=== PATIENT | female | born 2000 | race Caucasian/White ===

== ENCOUNTER → 2021-10-15 | Outpatient (CLI) | payer BC ==
--- NOTE | 2021-10-15 13:14 | EEG ---
DATE OF SERVICE: 10/15/2021 ELECTROENCEPHALOGRAM REPORT EEG NUMBER: [id number], performed on 10/15/[address] Larisa Luna. OBJECTIVE: The patient is a 20-year-old female with 2 episodes of syncope with epigastric discomfort before each event. DESCRIPTION: This is a digital study. Electrodes are placed according to the international 10-20 system. Bipolar and referential montages are available. Activation procedures typically include hyperventilation and intermittent photic stimulation. INTERPRETATION: The waking background consists of 9-10 Hz, 50-100 microvolt activity, symmetrically distributed over parietooccipital regions and reactive to eye opening. Hyperventilation and intermittent photic stimulation are noncontributory. Stage 1 sleep is achieved with normal electroencephalogram patterns. All computer identified abnormalities are reviewed, and none are abnormal. IMPRESSION: This electroencephalogram with the patient awake and asleep is within normal limits. There is no focal, paroxysmal, or epileptiform activity. Thank you for letting us help with the patient's care. SHERLYN DR: Jaja TID: [id number]
== END ==
LOC: RT 09:22
PROVIDERS: ATTEND Pediatrics
DX: R55 Syncope and collapse (principal)
CPT/HCPCS: 95816

== ENCOUNTER 2021-12-29 04:53 | Emergency (ER) | payer BC ==
[~2021-12-29] VITALS: Ht 162.6 cm; Wt 90.0 kg
--- NOTE | 2021-12-29 05:28 | EKG ---
[facility] [address] [place] [address] Test Date: 2021-12-29 Test Time: 05:21:27 Pat Name: NATHALIE ARREDONDO Department: Room: Gender: F Hospital Admitting Clerk: : 2000 Requested By: DANILO ELIZABETH Order Number: [id number] Reading MD: Measurements Intervals [place] Rate: 69 P: 0 VT: 164 QRS: 149 QRSD: 80 T: 148 QT: 372 QTc: 400 Interpretive Statements SINUS RHYTHM ABNORMAL RIGHT AXIS DEVIATION T ABNORMALITY IN HIGH LATERAL LEADS ABNORMAL ECG RI6.02 No previous ECG available for comparison
[2021-12-29 05:33] LABS: BASO # 0.1 x10^3/uL (0.0-0.2); BASO % 1 % (0-3); EOS # 0.4 x10^3/uL (0.0-0.7); EOS % 3 % (0-3); HEMATOCRIT 37.8 % (36.0-47.0); HEMOGLOBIN 12.4 g/dL (12.0-15.5); LYMPH % 36 % (24-48); MEAN CORPUSCULAR HEMOGLOBIN 29 pg (25-35); MEAN CORPUSCULAR HGB CONC 33 g/dL (31-37); MEAN CORPUSCULAR VOLUME 87 fL (79-100); MONO # 0.7 x10^3/uL (0.0-1.1); MONO % 5 % (0-9); NEUT # 7.9 x10^3/uL (1.8-7.7); NEUT % 56 % (31-73); PLATELET COUNT 389 x10^3/uL (140-400); RED BLOOD COUNT 4.35 x10^6/uL (3.50-5.40); WHITE BLOOD COUNT 14.2 x10^3/uL (4.0-11.0)
--- NOTE | 2021-12-29 05:33 | RAD ---
XR CHEST 1V 12/29/2021 5:27 AM INDICATION: Syncope COMPARISON: None available TECHNIQUE: Portable frontal view of the chest is provided. FINDINGS: The cardiomediastinal silhouette is within normal limits. Lungs are clear. There are no significant pleural effusions. There is no pulmonary vascular congestion. No pneumothora x. No suspicious osseous abnormality. IMPRESSION: There is no acute cardiopulmonary process. Electronically signed by: Ana Kirkpatrick MD (12/29/2021 5:31 AM) ZAHIDA
[2021-12-29 05:38] LABS: CREATININE 0.9 mg/dL (0.6-1.0); GFR 79.8; POTASSIUM 4.3 mmol/L (3.5-5.1)
--- NOTE | 2021-12-29 05:40 | PHYS DOC ---
Past Medical History Past Surgical History: No Surgical History General Adult EDM: Chief Complaint: SYNCOPE HPI: HPI: 21-year-old female past medical history of anxiety recently started on citalopram, presents the ED with concern for seizure-like activity prior to arrival. Patient states she woke up around 4 AM with an aura, associated nausea, stomachache, vision loss and passed out. States she feels confused afterwards but shortly returned to baseline. Reports her father caught her and she did not hit her head. Report no associated urinary incontinence, fever, URI, recent fluid losses or dehydration, tongue biting or head injury. Dates she has been having seizures on a monthly basis since the summer and has been seen by Dr. Angeles in October with an unremarkable EEG (I reviewed the EMR for this information). Is on any antiepileptics. Last menstrual period was beg inning of November. Has been vaccinated for COVID but had Covid in November. States she came to the emergency department because these events are scary and she wanted another opinion. Is any alcohol, cocaine, methamphetamine or drug use. Prior history of . No past surgical history. Follows with primary care physician Dr. Magdalena Gil. Review of Systems: Review of Systems: Constitutional: Denies fever or chills. [] Eyes: Denies change in visual acuity. [] HENT: Denies nasal congestion or sore throat. [] Respiratory: Denies cough or hemoptysis Cardiovascular: Denies chest pain or edema. [] GI: Denies abdominal bloody stools or diarrhea. [] : Denies dysuria or vaginal bleeding Musculoskeletal: Denies back pain or joint pain. [] Integument: Denies rash or diaphoresis Neurologic: Denies headache, neck pain, focal weakness or sensory changes. [] Endocrine: Denies polyuria or polydipsia. [] Lymphatic: Denies swollen glands. [] Psychiatric: Denies depression or anxiety. [] Heart Score: C/O Chest Pain: No Risk Factors: Risk Factors: DM, Current or recent (<one month) smoker, HTN, HLP, family history of CAD, obesity. Risk Scores: Score 0 - 3: 2.5% MACE over next 6 weeks - Discharge Home Score 4 - 6: 20.3% MACE over next 6 weeks - Admit for Clinical Observation Score 7 - 10: 72.7% MACE over next 6 weeks - Early Invasive Strategies Allergies: Allergies: Allergies Coded Allergies Type Severity Reaction Last Updated Verified Penicillins Allergy Intermediate hives 12/29/21 Yes Physical Exam: PE: Constitutional: Well developed, well nourished, no acute distress, non-toxic appearance. HENT: Normocephalic, atraumatic, no signs of head trauma Eyes: EOMI, conjunctiva normal, no discharge. Neck: Normal range of motion, supple, no midline neck tenderness Cardiovascular: S1/2 present, regular rhythm Lungs & Thorax: Speaking in full sentences, bilateral equal chest rise, no tachypnea or increased work of breathing Abdomen: soft, no tenderness, Skin: Warm, dry, no erythema, no rash. [] Back: No tenderness, no CVA tenderness. [] Extremities: No tenderness, no cyanosis, no lower extremity edema Neurologic: Alert and oriented X 3, normal motor function, normal sensory function, no focal deficits noted. [] Psychologic: Affect normal, judgement normal, mood normal. [] Current Patient Data: Labs: Laboratory Tests Test 12/29/21 05:20 12/29/21 05:27 White Blood Count 14.2 x10^3/uL (4.0-11.0) H Red Blood Count 4.35 x10^6/uL (3.50-5.40) Hemoglobin 12.4 g/dL (12.0-15.5) Hematocrit 37.8 % (36.0-47.0) Mean Corpuscular Volume 87 fL (79-100) Mean Corpuscular Hemoglobin 29 pg (25-35) Mean Corpuscular Hemoglobin Concent 33 g/dL (31-37) Red Cell Distribution Width 14.0 % (11.5-14.5) Platelet Count 389 x10^3/uL (140-400) Neutrophils (%) (Auto) 56 % (31-73) Lymphocytes (%) (Auto) 36 % (24-48) Monocytes (%) (Auto) 5 % (0-9) Eosinophils (%) (Auto) 3 % (0-3) Basophils (%) (Auto) 1 % (0-3) Neutrophils # (Auto) 7.9 x10^3/uL (1.8-7.7) H Lymphocytes # (Auto) 5.0 x10^3/uL (1.0-4.8) H Monocytes # (Auto) 0.7 x10^3/uL (0.0-1.1) Eosinophils # (Auto) 0.4 x10^3/uL (0.0-0.7) Basophils # (Auto) 0.1 x10^3/uL (0.0-0.2) POC Urine HCG, Qualitative Hcg negative (Negative) Laboratory Tests 12/29/21 05:20 Vital Signs: Vital Signs Date Time Temp Pulse Resp B/P (MAP) Pulse Ox O2 Delivery O2 Flow Rate FiO2 12/29/21 05:04 98.5 83 18 133/69 (90) 97 Room Air 98.5 EKG: EK sinus rhythm 69 bpm, extreme rad, TWI 1, aVL and V2, no pao/std, concern for Lemli discordance of P wave down in lead I 70 bpm, no axis deviation, normal intervals, T wave inversion V2, no ST elevation or ST depression Radiology/Procedures: Radiology/Procedures: IMAGING REPORT Signed PATIENT: NATHALIE ARREDONDO ACCOUNT: [id number] : 2000 LOCATION: ER AGE: 21 SEX: F EXAM STATUS: PRE ER ORD. PHYSICIAN: DANILO ELIZABETH DO REASON: syncope PROCEDURE: PORTABLE CHEST 1V XR CHEST 1V 12/29/2021 5:27 AM INDICATION: Syncope COMPARISON: None available TECHNIQUE: Portable frontal view of the chest is provided. FINDINGS: The cardiomediastinal silhouette is within normal limits. Lungs are clear. There are no significant pleural effusions. There is no pulmonary vascular congestion. No pneumothorax. No suspicious osseous abnormality. IMPRESSION: There is no acute cardiopulmonary process. Electronically signed by: Virgilio Aguilar MD (12/29/2021 5:31 AM) [facility] DICTATED and SIGNED BY: VRIGILIO AGUILAR MD DATE: 12/29/21 [id number] Course & Med Decision Making: Course & Med Decision Making Pertinent Labs and Imaging studies reviewed. (See chart for details) Concern for seizure-like activity. Pt with no head trauma, incontinence or tongue biting. Patient is also taking famciclovir for herpes outbreak. Most common adverse effect with this medication is nausea, vomiting or diarrhea. Orthostatics negative. No family history of splenic tissue disease, aortic aneurysm, aortic dissection. No associated chest pain or shortness of breath. D-dimer within normal limits. Patient is hemodynamically stable. Cannot PERC out due to control use. D-dimer is within normal limits. X-ray unremarkable. 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 Will refer to neurology for a second opinion. Patient reports she is eating and tolerating oral intake. No associated dehydration. Will discharge home with strict ED return precautions were given for persistent seizures with inability to return to baseline, neurologic deficits, chest pain, shortness of breath or traumatic injury-father educated on this. Encouraged urgent outpatient follow-up with PMD for routine care and neurology evaluation. Life-threatening processes were considered but are low suspicion at this time, given history, physical exam and ED workup. Pt was educated on all prescription medications and adverse effects. All patient's questions were answered and pt was stable at time of discharge. Life/limb-threatening differential includes but is not limited to, end organ damage/sepsis, trauma/abuse/neglect, neurologic deficit, alcohol/drug ingestion, toxidrome, suicidal/homicidal ideations plans or attempts, psychosis or mental illness resulting in self neglect and inability to care for self. I have spoken with the patient and/or caregivers. I explained the patient's condition, diagnoses and treatment plan based on the information available to me at this time. I have answered the patient and/or caregiver's questions and addressed any concerns. The patient and/or caregivers have a good understanding of patient's diagnosis, condition and treatment plan as can be expected at this point. Vital signs have been stable. Patient's condition is stable and appropriate for discharge from the emergency department. Patient will pursue further outpatient evaluation with primary care physician or other designated or consulting physician as outlined in the discharge instructions. The patient and/or caregivers are agreeable to this plan of care and follow-up instructions have been explained in detail. The patient and/or caregivers have received these instructions in written form and have expressed an understanding of the discharge instructions. The patient and/or caregivers are aware that any significant change of condition or worsening of symptoms should prompt immediate return to this or the closest emergency department or call to 911. Viola Disclaimer: Viola Disclaimer: This electronic medical record was generated, in whole or in part, using a voice recognition dictation system. Departure Departure Impression: Primary Impression: Seizure-like activity Additional Impression: Nausea Disposition: 01 HOME / SELF CARE / HOMELESS Condition: STABLE Referrals: LANDON MENDOSA MD (PCP) Follow-up with your primary care physician in 24 to 48 hours OR FOLLOW UP WITH FAMILY MEDICINE: [address] [place] [address] Patient Instructions: Nausea, Adult, Nonepileptic Seizures, Seizure, Adult Additional Instructions: RETURN TO THE ED IF YOU SHOULD DEVELOP persistent seizures with inability to return to NORMAL MENTATION, neurologic deficits (facial droop, speech changes, arm or leg weakness or confusion), chest pain, shortness of breath or traumatic injury FOLLOW UP WITH NEUROLOGY: FOR DEFINITIVE MANAGEMENT [facility] [address] [place] [address] EMERGENCY DEPARTMENT GENERAL DISCHARGE INSTRUCTIONS Thank you for coming to [facility] Emergency Department (ED) today and trusting us with you care. We trust that you had a positive experience in our Emergency Department. If you wish to speak to the department management, you may call the Director at [phone]. YOUR FOLLOW UP INSTRUCTIONS ARE FOLLOWS: 1. Do you have a private Doctor? If you do not have a private doctor, please ask for a resource list of physicians or clinics that may be able to assist you with follow up care. 2. The Emergency Physicain has interpreted your x-rays. The X-Ray specialist will also review them. If there is a change in the findings, you will be notified in 48 hours when at all possible. 3. A lab test or culture has been done, your results will be reviewed and you will be notified if you need a change in treatment. ADDITIONAL INSTRUCTIONS AND INFORMATION: 1. Your care today has been supervised by a physician who is specially trained in emergency care. Many problems require more than one evaluation for a complete diagnosis and treatment. We recommend that you schedule your follow up appointment as re commended to ensure complete treatment of you illness or injury. If you are unable to obtain follow up care and continue to have a problem, or if your condition worsens, we recommend that you return to the ED. 2. We are not able to safely determine your condition over the phone nor are we able to give sound medical advice over the phone. For these safety reasons, if you call for medical advice we will ask you to come to the ED for further evaluation. 3. If you have any questions regarding these discharge instructions please call the ED at [phone]. SAFETY INFORMATION: In the interest of safety, wellness, and injury prevention; we encourage you to wear your sealbelt, if you smoke; quite smoking, and we encourage family to use a protective helmet for bicycling and other sporting events that present an increased risk for head injury. IF YOUR SYMPTOMS WORSEN OR NEW SYMPTOMS DEVELOP, OR YOU HAVE CONCERNS ABOUT YOUR CONDITION; OR IF YOUR CONDITION WORSENS WHILE YOU ARE WAITING FOR YOUR FOLLOW UP APPOINTMENT; EITHER CONTACT YOUR PRIMARY CARE DOCTOR, THE PHYSICIAN WHOSE NAME AND NUMBER YOU WERE GIVEN, OR RETURN TO THE ED IMMEDIATELY. Scripts Ondansetron (ONDANSETRON ODT) 4 Mg Tab.rapdis 1 TAB PO PRN Q6-8HRS, #20 TAB Prov: DANILO ELIZABETH DO 12/29/21 DANILO ELIZABETH DO Dec 29, 2021 05:40
[2021-12-29 05:46] LABS: ALBUMIN 3.4 g/dL (3.4-5.0); ALBUMIN/GLOBULIN RATIO 0.9 (1.0-1.7); MAGNESIUM 2.2 mg/dL (1.8-2.4); TOTAL BILIRUBIN 0.3 mg/dL (0.2-1.0); TOTAL PROTEIN 7.2 g/dL (6.4-8.2)
[2021-12-29 05:48] LABS: BARBITURATES NEG (NEG); BENZODIAZEPINES NEG (NEG); CANNABINOIDS NEG (NEG); COCAINE NEG (NEG); METHADONE NEG (NEG); OPIATES NEG (NEG); PHENCYCLIDINE NEG (NEG)
[2021-12-29 05:50] LABS: AMPHETAMINE/METHAMPHETAMINE NEG (NEG)
[2021-12-29] MEDS ORDERED: ONDANSETRON PF 4 MG/2 ML VIAL. IVP ONE (06:15)
[2021-12-29 06:24] VITALS: BP 124/61
[2021-12-29] MEDS ORDERED: ONDA4TAB12 PO (06:31)
--- NOTE | 2021-12-29 07:01 | EKG ---
[facility] [address] [place] [address] Test Date: 2021-12-29 Test Time: 05:51:01 Pat Name: NATHALIE ARREDONDO Department: Room: Gender: F [employer]: : 2000 Requested By: DANILO ELIZABETH Order Number: [id number] Reading MD: Measurements Intervals [place] Rate: 70 P: 32 NV: 172 QRS: 60 QRSD: 94 T: 35 QT: 380 QTc: 413 Interpretive Statements SINUS RHYTHM NORMAL ECG RI6.02 No previous ECG available for comparison
== END 2021-12-29 07:08 | disposition home or self-care (01) ==
LOC: ER 04:53
DX: R56.9 Unspecified convulsions (principal); R11.0 Nausea; R10.9 Unspecified abdominal pain; H54.7 Unspecified visual loss; Z88.0 Allergy status to penicillin
CPT/HCPCS: 36415; 71045; 80053; 80307; 81025; 83735; 83880; 84484; 85025; 85379; 93005; 96374; 99285; J2405